=== PATIENT | female | born 1965 | race Caucasian/White ===

== ENCOUNTER 2022-03-22 06:55 | Outpatient (CLI) | payer BC, SELFPAY | END 2022-03-22 06:56 | disposition home or self-care (01) | LOC: INJ CL 06:56 | PROVIDERS: PCP Family Medicine; Visit Provider Family Medicine | DX: M16.12 Unilateral primary osteoarthritis, left hip (principal); M25.552 Pain in left hip | CPT/HCPCS: 20610; 77002; J0702; J2001; Q9966 ==

== ENCOUNTER 2024-11-02 13:30 | Outpatient (CLI) | payer OTHER, BC, SELFPAY | END 2024-11-02 13:31 | disposition home or self-care (01) | PROVIDERS: PCP Family Medicine; Visit Provider Family Medicine | DX: M54.16 Radiculopathy, lumbar region (principal); M51.369 Other intervertebral disc degeneration, lumbar region without mention of lumbar back pain or lower extremity pain | CPT/HCPCS: 64483; J1100; Q9966 ==